=== PATIENT | female | born 1960 | race Caucasian/White ===

== ENCOUNTER 2020-01-31 22:17 | Inpatient (IN) | payer MEDICAID ==
[~2020-01-31] VITALS: Ht 162.6 cm; Wt 68.2 kg
[~2020-01-31 22:17] MED LIST: ALB0.5UD IH; CYCL-394 PO; DIPH-423 PO; GABA300C PO; LEVA15HF4 IH; NORCO10T PO; OXYC10TA6 PO
[2020-01-31] MEDS ORDERED: ondansetron/PF 4mg/2ml inj IV ONE (23:00)
[2020-01-31] MEDS ORDERED: OXYC-658 PO (23:05)
[2020-01-31] MEDS ORDERED: GUAR1POW PO (23:05)
[2020-01-31] MEDS ORDERED: ZAR2.5T PO (23:05)
[2020-01-31] MEDS ORDERED: FURO-149 PO (23:05)
[2020-01-31] MEDS ORDERED: DIPH-629 PO (23:05)
[2020-01-31] MEDS ORDERED: POTA10TA36 PO (23:05)
[2020-01-31] MEDS ORDERED: LEVA0.6319 NEB (23:05)
[2020-01-31] MEDS ORDERED: OSC500T PO (23:05)
[2020-01-31] MEDS ORDERED: OMEP20CA15 PO (23:05)
[2020-01-31] MEDS ORDERED: DOCU-148 PO (23:05)
[2020-01-31] MEDS ORDERED: LOPE1TAB46 PO (23:05)
[2020-01-31] MEDS ORDERED: NALO4SPR BOTHNARES (23:05)
[2020-01-31] MEDS ORDERED: NALO25TA4 PO (23:05)
[2020-01-31] MEDS ORDERED: ARFO15VI NEB (23:05)
[2020-01-31] MEDS ORDERED: AMBR10TA3 PO (23:05)
[2020-01-31 23:58] LABS: BASOPHILS % (AUTO) 0.3 % (0-1); EOSINOPHILS # (AUTO) 0.1 X10'3 (0-0.9); EOSINOPHILS % (AUTO) 0.5 % (0-6); HEMATOCRIT 34.1 % (35.0-45.0); HEMOGLOBIN 11.5 g/dl (12.0-16.0); LYMPHOCYTES % (AUTO) 8.3 % (21-51); MEAN CORPUSCULAR HEMOGLOBIN 29.5 PG (27.0-31.0); MEAN CORPUSCULAR HGB CONC 33.8 g/dL (33.0-36.5); MEAN CORPUSCULAR VOLUME 87.3 FL (78-98); MEAN PLATELET VOLUME 6.2 FL (7.4-10.4); MONOCYTES # (AUTO) 1.2 X10'3 (0-0.9); MONOCYTES % (AUTO) 9.9 % (2-12); NEUTROPHILS # (AUTO) 9.5 X10'3 (1.8-7.7); PLATELET COUNT 390 X10'3 (140-440); RED BLOOD COUNT 3.91 X10'6 (4.20-5.60); RED CELL DISTRIBUTION WIDTH 14.3 % (11.5-14.5); WHITE BLOOD COUNT 11.7 X10'3 (4.5-11.0)
[2020-02-01 00:03] LABS: ALBUMIN 2.2 G/DL (3.4-5.0); ANION GAP 7 (8-16); BLOOD UREA NITROGEN 38 MG/DL (7-18); BUN/CREATININE RATIO 26.4 (6.6-38.0); CALCIUM 9.1 MG/DL (8.5-10.1); CHLORIDE 102 MMOL/L (99-107); CREATININE 1.44 MG/DL (0.40-0.90); GLUCOSE 91 MG/DL (70-104); SODIUM 134 MMOL/L (135-145); eGFR 37 ML/MIN
[2020-02-01] MEDS ORDERED: ondansetron/PF 4mg/2ml inj IV PRN (00:20)
[2020-02-01] MEDS ORDERED: albuterol 2.5 MG/3 ML nebule NEB PRN (00:35)
--- NOTE | 2020-02-01 00:45 | NUR ---
Received report from Rito RN from ED. Patient came up to the floor via gurney. Able to get into bed with minimal assistance. Bed in locked and low position. Call light placed within reach.
[2020-02-01 01:10] VITALS: BP 107/44
[2020-02-01] MEDS: HYDROmorphone inj. 0.5 MG/0.5 ML DISP.SYRIN IV PRN ×5 (01:39→21:41)
[2020-02-01] MEDS: normal saline 1000ml 1,000 ML IV SCH ×3 (01:43→21:40)
[2020-02-01] MEDS ORDERED: TADA5TAB2 PO (03:15)
[2020-02-01] MEDS: albuterol 2.5 MG/3 ML nebule NEB SCH ×5 (04:10→20:18)
[2020-02-01 06:00] VITALS: BP_SYST 106; BP_SYST 111; BP_DIAS 44; BP_DIAS 53
--- NOTE | 2020-02-01 06:34 | NUR ---
Problems reprioritized. Patient report given, questions answered & plan of care reviewed with Ashly GARRISON.
[2020-02-01] MEDS: pantoprazole 40 MG vial IV SCH ×2 (07:49→19:50)
[2020-02-01 10:00] VITALS: BP 101/48
--- NOTE | 2020-02-01 11:48 | NUR ---
Malnutrition Consult "unaware of wt loss amount, recent GI surgery": Pt admit w/ concerns for UGIB s/p bloody emesis N/V, hyperkalemia 6.7 now down to 5.0, and worsening renal function per EMR. Pt hx SBO, NSTEMI, and intubation 1 month prior at [facility] requiring multiple OR visits and Ileostomy per EMR. Pt NPO at this time w/ 100ml Ileostomy output thus far. RD d/w RN regarding updated wt this admit as no scaled wt at this time and [place] where pt was transferred from reports only pt reported wt 125lb. Pt has no significant weakness, no edema, and lack of wt hx thus not meeting minimum malnutrition criteria at this time. Will monitor for updated wt, PO diet advancement, and additional malnutrition criteria this admit. Rec: 1. advance diet as medically indicated to low-residue 2. monitor for ONS needs once PO diet; consider katharina given prior surgical site w/ wound vac in place 3. bowel care per rx 4. multivitamin given GI surgery hx once PO 5. scaled wt this admit Addendum: 02/01/20 at [address] Amended: Links added.
--- NOTE | 2020-02-01 11:58 | NUR ---
PAGER ID: [phone] MESSAGE: [id number] Ayo did you tell her ok to start clear liquids? [id number] RAISSA
[2020-02-01 18:00] VITALS: BP 113/55
--- NOTE | 2020-02-01 18:28 | NUR ---
Patient in room ORTHO 4014. I have received report from Ashly GARRISON and had the opportunity to ask questions and assume patient care.
--- NOTE | 2020-02-01 20:43 | NUR ---
Patients wound vac had a leak and was full. Fixed leak. We did not have canisters that would fit her wound vac that was brought from home. Hooked patient up to one of our wound vacs and set it at 125mmhg continuous suction per doctors orders.
[2020-02-01 22:00] VITALS: BP 124/60
[2020-02-02] VITALS (9 sets, daily range): BP systolic 103–132; BP diastolic 49–78
[2020-02-02] MEDS: HYDROmorphone inj. 0.5 MG/0.5 ML DISP.SYRIN IV PRN ×5 (01:38→20:18)
[2020-02-02] MEDS: albuterol 2.5 MG/3 ML nebule NEB SCH ×4 (02:52→21:00)
[2020-02-02 06:04] LABS: BASOPHILS % (AUTO) 0.6 % (0-1); EOSINOPHILS # (AUTO) 0.2 X10'3 (0-0.9); EOSINOPHILS % (AUTO) 3.1 % (0-6); HEMOGLOBIN 10.6 g/dl (12.0-16.0); LYMPHOCYTES # (AUTO) 1.1 X10'3 (1.1-4.8); LYMPHOCYTES % (AUTO) 13.9 % (21-51); MEAN CORPUSCULAR VOLUME 87.8 FL (78-98); MEAN PLATELET VOLUME 6.1 FL (7.4-10.4); MONOCYTES # (AUTO) 0.8 X10'3 (0-0.9); MONOCYTES % (AUTO) 10.5 % (2-12); NEUTROPHILS # (AUTO) 5.5 X10'3 (1.8-7.7); NEUTROPHILS % (AUTO) 71.9 % (42-75); PLATELET COUNT 320 X10'3 (140-440); RED BLOOD COUNT 3.64 X10'6 (4.20-5.60); RED CELL DISTRIBUTION WIDTH 14.5 % (11.5-14.5); WHITE BLOOD COUNT 7.7 X10'3 (4.5-11.0)
--- NOTE | 2020-02-02 06:19 | NUR ---
Problems reprioritized. Patient report given, questions answered & plan of care reviewed with Day GARRISON.
[2020-02-02 06:21] LABS: ALANINE AMINOTRANSFERASE 22 U/L (12-78); ALBUMIN 1.9 G/DL (3.4-5.0); ALBUMIN/GLOBULIN RATIO 0.5 (1.1-1.5); ALKALINE PHOSPHATASE 69 IU/L (46-116); ANION GAP 7 (8-16); ASPARTATE AMINO TRANSFERASE 20 U/L (10-37); BILIRUBIN,TOTAL 0.3 MG/DL (0.1-1.0); BLOOD UREA NITROGEN 17 MG/DL (7-18); BUN/CREATININE RATIO 21.3 (6.6-38.0); CALCIUM 8.1 MG/DL (8.5-10.1); CHLORIDE 107 MMOL/L (99-107); GLUCOSE 82 MG/DL (70-104); POTASSIUM 3.8 MMOL/L (3.5-5.1); SODIUM 138 MMOL/L (135-145); TOTAL CARBON DIOXIDE 23.6 MMOL/L (24-32); TOTAL PROTEIN 5.5 G/DL (6.4-8.2); eGFR 73 ML/MIN
[2020-02-02] MEDS: pantoprazole 40 MG vial IV SCH ×2 (08:52→19:15)
[2020-02-02] MEDS: normal saline 1000ml 1,000 ML IV SCH (08:56)
--- NOTE | 2020-02-02 08:57 | NUR ---
admin meds. changed fluids, and assessed pain.
[2020-02-02] MEDS ORDERED: MIDAZolam 5mg/5ml vial ONE (10:30)
[2020-02-02] MEDS ORDERED: fentaNYL/PF 50MCG/1 ML 2ML syringe ONE (10:30)
[2020-02-02] MEDS ORDERED: LIDOcaine Viscous 15ml cup ONE (10:31)
--- NOTE | 2020-02-02 18:15 | NUR ---
Problems reprioritized. Patient report given, questions answered & plan of care reviewed with Katie.
--- NOTE | 2020-02-02 18:23 | NUR ---
Patient in room ORTHO 4014. I have received report from aDy GARRISON and had the opportunity to ask questions and assume patient care.
[2020-02-02] MEDS ORDERED: diphenhydrAMINE 25mg capsule PO ONE (20:45)
[2020-02-03] MEDS: HYDROmorphone inj. 0.5 MG/0.5 ML DISP.SYRIN IV PRN ×5 (02:16→20:07)
[2020-02-03] MEDS: albuterol 2.5 MG/3 ML nebule NEB SCH ×3 (03:00→15:00)
[2020-02-03 05:52] LABS: BASOPHILS % (AUTO) 0.5 % (0-1); EOSINOPHILS # (AUTO) 0.4 X10'3 (0-0.9); EOSINOPHILS % (AUTO) 4.5 % (0-6); HEMATOCRIT 34.2 % (35.0-45.0); HEMOGLOBIN 11.3 g/dl (12.0-16.0); LYMPHOCYTES # (AUTO) 0.7 X10'3 (1.1-4.8); LYMPHOCYTES % (AUTO) 8.9 % (21-51); MEAN CORPUSCULAR HEMOGLOBIN 29.3 PG (27.0-31.0); MEAN CORPUSCULAR VOLUME 88.8 FL (78-98); MEAN PLATELET VOLUME 6.4 FL (7.4-10.4); MONOCYTES # (AUTO) 0.6 X10'3 (0-0.9); MONOCYTES % (AUTO) 7.6 % (2-12); NEUTROPHILS # (AUTO) 6.1 X10'3 (1.8-7.7); NEUTROPHILS % (AUTO) 78.5 % (42-75); PLATELET COUNT 337 X10'3 (140-440); RED BLOOD COUNT 3.85 X10'6 (4.20-5.60); RED CELL DISTRIBUTION WIDTH 14.5 % (11.5-14.5); WHITE BLOOD COUNT 7.8 X10'3 (4.5-11.0)
[2020-02-03 05:53] LABS: ANION GAP 8 (8-16); BILIRUBIN,TOTAL 0.2 MG/DL (0.1-1.0); BLOOD UREA NITROGEN 9 MG/DL (7-18); CHLORIDE 109 MMOL/L (99-107); CREATININE 0.82 MG/DL (0.40-0.90); GLUCOSE 135 MG/DL (70-104); POTASSIUM 3.8 MMOL/L (3.5-5.1); SODIUM 140 MMOL/L (135-145); TOTAL CARBON DIOXIDE 22.9 MMOL/L (24-32); TOTAL PROTEIN 5.7 G/DL (6.4-8.2); eGFR 71 ML/MIN
[2020-02-03 05:54] LABS: ALANINE AMINOTRANSFERASE 24 U/L (12-78); ALBUMIN/GLOBULIN RATIO 0.5 (1.1-1.5); ALKALINE PHOSPHATASE 69 IU/L (46-116); ASPARTATE AMINO TRANSFERASE 24 U/L (10-37)
[2020-02-03 06:10] VITALS: BP 103/60
--- NOTE | 2020-02-03 06:30 | NUR ---
Patient in room ORTHO 4014. I have received report from Katie GARRISON and had the opportunity to ask questions and assume patient care.
--- NOTE | 2020-02-03 06:35 | NUR ---
Problems reprioritized. Patient report given, questions answered & plan of care reviewed with Kavya GARRISON.
[2020-02-03] MEDS: pantoprazole 40 MG vial IV SCH ×2 (08:08→20:06)
[2020-02-03 10:00] VITALS: BP 97/63
[2020-02-03 18:00] VITALS: BP 95/46
--- NOTE | 2020-02-03 18:40 | NUR ---
Patient report given to Vidhi GARRISON
[2020-02-03] MEDS ORDERED: diphenhydrAMINE 25mg capsule PO PRN (20:05)
[2020-02-03 22:07] VITALS: BP 114/59
[2020-02-04] MEDS: HYDROmorphone inj. 0.5 MG/0.5 ML DISP.SYRIN IV PRN ×2 (05:19→09:33)
--- NOTE | 2020-02-04 06:30 | NUR ---
Problems reprioritized. Patient report given, questions answered & plan of care reviewed with Day GARRISON.
--- NOTE | 2020-02-04 06:51 | NUR ---
Patient in room ORTHO 4014. I have received report from Alda and had the opportunity to ask questions and assume patient care.
[2020-02-04] MEDS: pantoprazole 40 MG vial IV SCH (07:57)
[2020-02-04] MEDS ORDERED: oxyCODONE IR 5mg (immed. release) tablet PO PRN ×2 (10:35)
[2020-02-04] MEDS ORDERED: PANT-47 PO (11:36)
--- NOTE | 2020-02-04 12:54 | NUR ---
spoke w/hospitalist about removing pt picc line that pt had placed prior to hospital visit and hospitalist said for picc line to be removed prior to d/c
--- NOTE | 2020-02-04 17:31 | NUR ---
Patient dropped off a new wound vac container for her wound vac she brought from home. Along with a oxygen tank she has from home. Patient PICC line was pulled and pressure dressing applied. Patient will continue treatment with [facility]. Patient was very excited to go home and is able to help change out her ileostomy bags along with wound care.
[2020-02-04] MEDS ORDERED: pantoprazole 40mg Tablet.DR PO SCH (20:00)
== END 2020-02-04 17:05 | disposition home health service (06) | DRG 241 ==
LOC: ER 22:17 → ORTHO 4S 02-01 00:19 → CMPBEDREQ 02-01 05:20
PROVIDERS: ADMIT Internal Medicine; ATTEND Family Medicine
PROC: 0DB68ZX Excision of Stomach, Via Natural or Artificial Opening Endoscopic, Diagnostic (ICD-10-PCS; principal; 2020-02-02)
DX: K29.71 Gastritis, unspecified, with bleeding (principal); K21.01 Gastro-esophageal reflux disease with esophagitis, with bleeding; Z93.2 Ileostomy status; E87.5 Hyperkalemia; Z90.710 Acquired absence of both cervix and uterus; Z88.8 Allergy status to other drugs, medicaments and biological substances; Z85.118 Personal history of other malignant neoplasm of bronchus and lung; Z87.891 Personal history of nicotine dependence; Z90.2 Acquired absence of lung [part of]; N17.0 Acute kidney failure with tubular necrosis; D50.0 Iron deficiency anemia secondary to blood loss (chronic); K44.9 Diaphragmatic hernia without obstruction or gangrene; B19.20 Unspecified viral hepatitis C without hepatic coma; J44.9 Chronic obstructive pulmonary disease, unspecified; G89.29 Other chronic pain; M19.90 Unspecified osteoarthritis, unspecified site
CPT/HCPCS: 36415; 43239; 80048; 80053; 85025; 87081; 93308; 94667; 94668; 94760; 96374; 96375; 99152; 99285; A4620; C9113; G0378; J1170; J2250; J2405; J3010; J7030; J7040; Q0163